=== PATIENT | female | born 1935 | race Caucasian/White ===

== ENCOUNTER 2017-11-11 11:27 | Emergency (ER) | payer OTHER ==
[~2017-11-11] VITALS: Ht 152.4 cm; Wt 57.1 kg
[2017-11-11 11:31] VITALS: Ht 152.4 cm; Wt 57.1 kg
[2017-11-11 15:46] VITALS: BP 131/68
== END 2017-11-11 15:55 | disposition home or self-care (01) ==
LOC: ED 11:27
DX: S43.102A Unspecified dislocation of left acromioclavicular joint, initial encounter (principal); X50.9XXA Other and unspecified overexertion or strenuous movements or postures, initial encounter; Y93.89 Activity, other specified; Y92.89 Other specified places as the place of occurrence of the external cause; Y99.8 Other external cause status
CPT/HCPCS: J2270; J2704; Q0092; Q0162

== ENCOUNTER 2019-05-24 12:13 | Emergency (ER) | payer OTHER ==
[~2019-05-24] VITALS: Ht 152.4 cm; Wt 56.8 kg
[2019-05-24 12:38] VITALS: Ht 152.4 cm; Wt 56.8 kg
[2019-05-24 14:21] VITALS: BP 128/68
== END 2019-05-24 14:21 | disposition home or self-care (01) ==
LOC: ED 12:13
DX: S40.022A Contusion of left upper arm, initial encounter (principal); I10 Essential (primary) hypertension; E78.00 Pure hypercholesterolemia, unspecified; W01.0XXA Fall on same level from slipping, tripping and stumbling without subsequent striking against object, initial encounter; Y93.89 Activity, other specified; Y92.89 Other specified places as the place of occurrence of the external cause; Y99.8 Other external cause status